=== PATIENT | male | born 1955 | race Hispanic/Latino ===

== ENCOUNTER 2020-01-17 07:09 | Day surgery (SDC) | payer OTHER ==
[2020-01-17 07:25] VITALS: BP 125/72
[2020-01-17 08:30] VITALS: BP 135/81
[2020-01-17 09:30] VITALS: BP 116/70
[2020-01-17 10:30] VITALS: BP 117/78
[2020-01-17 11:30] VITALS: BP 103/53
[2020-01-17] MEDS ORDERED: IOHEXOL 350 MG/ML 100ML INFUS..BTL IV ONE (11:57)
[2020-01-17 12:30] VITALS: BP 149/87
== END 2020-01-17 13:15 | disposition home or self-care (01) ==
LOC: RAH 07:09 → DAH 07:09 → RAH 13:15
PROVIDERS: ATTEND Internal Medicine Cardiovascular Disease
DX: I71.4 Abdominal aortic aneurysm, without rupture (principal)
CPT/HCPCS: 74174; A4215; A4216; A4221; A4222; A4223 ×3; A4606; A4663; Q9967; 96360; 96361

== ENCOUNTER 2020-02-09 09:00 | Inpatient (IN) | payer OTHER ==
[~2020-02-09] VITALS: Ht 175.3 cm; Wt 94.8 kg
[2020-02-09 10:12] LABS: BASOPHILS % (AUTO) 0.7 % (0.0-5.0); EOSINOPHILS % (AUTO) 2.3 % (0.0-8.0); HEMATOCRIT 45.6 % (42-54); LYMPHOCYTES % (AUTO) 18.7 % (21.0-51.0); MEAN CORPUSCULAR HEMOGLOBIN 31.6 pg (27.0-33.0); MEAN CORPUSCULAR HGB CONC 33.6 g/dL (32.0-36.0); MEAN CORPUSCULAR VOLUME 94.2 fL (79-99); NEUTROPHILS % (AUTO) 71.7 % (40.0-77.0); PLATELET COUNT (AUTO) 210 K/uL (130-400); RED BLOOD CELL COUNT(AUTO) 4.84 MIL/uL (4.50-6.20); RED CELL DISTRIBUTION WIDTH 13.9 % (11.0-15.5); WHITE BLOOD COUNT (AUTO) 10.6 K/uL (4.8-10.8)
[2020-02-09 10:26] LABS: CREATININE 1.9 mg/dL (0.5-1.5)
[2020-02-09 10:31] LABS: INR 1.02 (0.85-1.15); PARTIAL THROMBOPLASTIN TIME 29.9 SEC (26.3-35.5)
[2020-02-09 10:44] LABS: APPEARANCE,URINE Clear (CLEAR); BILIRUBIN,URINE Negative (NEGATIVE); COLOR,URINE Yellow (YELLOW); GLUCOSE, URINE (UA) Negative (NEGATIVE); KETONES,URINE Negative (NEGATIVE); LEUKOCYTE ESTERASE ,URINE Negative (NEGATIVE); NITRATE,URINE Negative (NEGATIVE); OCCULT BLOOD,URINE Negative (NEGATIVE); PROTEIN,URINE POS 1+ mg/dL (NEGATIVE); UROBILINOGEN,URINE 0.2 mg/dL (0.2-1.0)
[2020-02-09 11:31] LABS: RBC,URINE 0-1 /HPF (0-1); WBC,URINE 0-1 /HPF (0-1)
[2020-02-09 11:32] LABS: BACTERIA,URINE Rare /HPF (None Seen); SQUAMOUS EPITHELIAL CELL,UR 0-2 /HPF (0-2)
[2020-02-10 09:13] VITALS: BP 119/78
--- NOTE | 2020-02-13 09:31 | NUR ---
Abnormal creatinine level reported to Dr. López. New orders to hydrate pt on arrival NS @ 150ml/hr.
[2020-02-13] MEDS ORDERED: AMLO5TAB9 PO (10:51)
[2020-02-13] MEDS ORDERED: LOSA1TAB37 PO (10:51)
[2020-02-13] MEDS ORDERED: ATOR40TA71 PO (10:51)
[2020-02-14] VITALS (17 sets, daily range): BP systolic 99–155; BP diastolic 52–80
--- NOTE | 2020-02-14 06:10 | NUR ---
POTENTIAL FOR INFECTION: SHAVED FROM CHEST TO MID THIGHS PER [employer]. Addendum: 02/14/20 at 0655 by JAROD QURESHI RN RN SHAVING DONE TO ABOVE KNEE AND BILATERAL GROIN AREA, FOLLOWED BY WIPING WITH DEWEY: 2% CHLORHEXIDINE GLUCONATE CLOTH PATIENTS PRE-OP SKIN PREP PER [employer].
[2020-02-14] MEDS ORDERED: IODIXANOL 320 MG/ML 100 ML VIAL ONE (06:48)
[2020-02-14] MEDS ORDERED: HEPARIN SODIUM 1000UNIT/ML 10ML VIAL ONE ×2 (06:48→08:57)
[2020-02-14] MEDS: SODIUM CHLORIDE 0.9% 1000ML 1,000 ML IV SCH ×3 (06:49→15:53)
[2020-02-14] MEDS ORDERED: SUCCINYLCHOLINE CHLORIDE 20 MG/ML 10 ML VIAL ONE (07:16)
[2020-02-14] MEDS ORDERED: DEXAMETHASONE SOD PHOSPHATE 10MG/ML 1ML VIAL ONE (07:16)
[2020-02-14] MEDS ORDERED: LIDOCAINE PF 2% 5ML ABBOJECT ONE (07:16)
[2020-02-14] MEDS ORDERED: ONDANSETRON HCL 4 MG/2 ML VIAL ONE (07:16)
[2020-02-14] MEDS ORDERED: PROPOFOL 10 MG/ML 20ML VIAL IV ONE (07:17)
[2020-02-14] MEDS ORDERED: ROCURONIUM 10MG/1ML SYR 10 MG/ML ML ONE (07:17)
[2020-02-14] MEDS ORDERED: FENTANYL CITRATE PF 50 MCG/1 ML 2ML VIAL ONE ×2 (07:17→10:52)
[2020-02-14] MEDS ORDERED: NEOSTIGMINE 5MG/5ML SYR IV ONE (07:17)
[2020-02-14] MEDS ORDERED: GLYCOPYRROLATE 1 MG/5 ML SYRINGE ONE (07:17)
[2020-02-14] MEDS ORDERED: MIDAZOLAM HCL 1 MG/ML 2ML VIAL ONE (07:17)
[2020-02-14] MEDS ORDERED: FENTANYL CITRATE PF 50 MCG/1 ML 5ML AMP IV ONE (07:18)
[2020-02-14] MEDS ORDERED: CEFAZOLIN SODIUM 1 GM VIAL ONE (07:31)
[2020-02-14] MEDS ORDERED: PHENYLEPHRINE HCL 10 MG/ML 1ML VIAL IV ONE ×3 (07:39→10:29)
[2020-02-14] MEDS ORDERED: EPINEPHRINE 1 MG/ML AMPULE ONE (07:39)
[2020-02-14] MEDS ORDERED: ROCURONIUM BROMIDE 10MG/1ML 5ML VL ONE (08:26)
[2020-02-14] MEDS ORDERED: NITROGLYCERIN 50 MG/D5% WATER 250 BOT IV PRN (11:00)
[2020-02-14] MEDS ORDERED: TEMAZEPAM 30 MG CAP PO PRN (11:00)
[2020-02-14] MEDS ORDERED: ACETAMINOPHEN 325 MG TAB PO PRN (11:00)
[2020-02-14] MEDS ORDERED: SODIUM CHLORIDE 0.9% 1000ML 1,000 ML IV SCH (11:00)
[2020-02-14] MEDS ORDERED: NOREPINEPHRINE 4MG/NS 250ML 250 ML IV PRN (11:00)
[2020-02-14] MEDS ORDERED: ONDANSETRON HCL 4 MG/2 ML VIAL IV PRN (11:00)
[2020-02-14] MEDS ORDERED: MORPHINE SULFATE 5 MG/ML VIAL ONE (11:27)
--- NOTE | 2020-02-14 11:35 | NUR ---
PT ARRIVES FROM [facility] POST ENDOLUMINAL GRAFT AAA REPAIR. BILATERAL FEMORAL PERCUTANEOUS SITES TO GROINS-BOTH ASYMPTOMATIC. EXTUBATED PER VALENTINA GONZALEZ. ON NRB FOR NOW. PT RESPONSIVE AND FOLLOWS COMMANDS
--- NOTE | 2020-02-14 12:30 | NUR ---
PT COMFORTABLE AND RESTING. NO BLEEDING OR HEMATOMAS TO BILATERAL GROINS. PEDAL PULSES PRESENT. I HAVE STARTED LOW DOSE LEVOPHED DUE TO HYPOTENSIVE EPISODE OF 83/50. CURRENTLY NOW 106/53. HR 64. PT ON 4L/NC. DR AGUERO NOTIFIED OF ADMISSION AND ROOM NUMBER
--- NOTE | 2020-02-14 16:26 | NUR ---
PT IS IN NO DISTRESS-AWAKE AND ALERT. CONVERSIVE. TAKING PO FLUIDS WELL. DENIES ANY PAIN
[2020-02-14] MEDS ORDERED: CEFAZOLIN SODIUM 1 GM VIAL IVP SCH (20:00)
[2020-02-14] MEDS ORDERED: AMLODIPINE BESYLATE 5 MG TAB PO SCH (21:00)
[2020-02-15] VITALS (10 sets, daily range): BP systolic 109–153; BP diastolic 55–82
[2020-02-15] MEDS: SODIUM CHLORIDE 0.9% 1000ML 1,000 ML IV SCH ×2 (02:29→08:24)
[2020-02-15 03:17] LABS: HEMATOCRIT 37.8 % (42-54); MEAN CORPUSCULAR HEMOGLOBIN 31.4 pg (27.0-33.0); MEAN CORPUSCULAR HGB CONC 33.9 g/dL (32.0-36.0); MEAN CORPUSCULAR VOLUME 92.9 fL (79-99); RED BLOOD CELL COUNT(AUTO) 4.07 MIL/uL (4.50-6.20); RED CELL DISTRIBUTION WIDTH 13.7 % (11.0-15.5); WHITE BLOOD COUNT (AUTO) 14.1 K/uL (4.8-10.8)
[2020-02-15 03:27] LABS: POTASSIUM 4.7 mmol/L (3.5-5.1)
--- NOTE | 2020-02-15 05:45 | NUR ---
TEJADA TEJADA CATHETER DISCONTINUED AT THIS TIME BALLOON AND CATHETER INTACT. PT TOLERATED WELL NO ADVERSE REACTIONS. PT ASKED TO CALL FOR ASSISTANCE IF NEEDED TO VOID.
[2020-02-15] MEDS ORDERED: LOSARTAN/HYDROCHLOROTHIAZIDE 50-12.5MG TABLET PO SCH (09:00)
[2020-02-15] MEDS ORDERED: ATORVASTATIN CALCIUM 20 MG TABLET PO SCH (09:00)
--- NOTE | 2020-02-15 10:00 | NUR ---
DISCHARGE DISCHARGE ORDER GIVEN BY Jewels JERONIMO. DISCHARGE PAPERWORK GIVEN TO PT. STATES HE UNDERSTANDS EDUCATION AND FOLLOW UP INSTRUCTIONS. VITAL SIGNS PRIOR TO DEPARTURE WERE BP:147/64 SPO2 100%.
--- NOTE | 2020-02-15 10:45 | NUR ---
DC PLAN PATIENT HAD BEEN DOWN FOR PROCEDURE YESTERDAY. PATIENT DISCHARGED. NO NEEDS VERBALIZED BY NURSING STAFF. Addendum: 02/15/20 at 1046 by ANJU RANDALL RN CM Amended: Links added.
== END 2020-02-15 11:05 | disposition home or self-care (01) | DRG 268 ==
LOC: EDSTATUS 09:00 → DAHIP 02-14 05:50
PROVIDERS: ADMIT Internal Medicine Critical Care Medicine; ATTEND Internal Medicine Critical Care Medicine
PROC: 04V03EZ Restriction of Abdominal Aorta with Branched or Fenestrated Intraluminal Device, One or Two Arteries, Percutaneous Approach (ICD-10-PCS; principal; 2020-02-14)
PROC: B4101ZZ Fluoroscopy of Abdominal Aorta using Low Osmolar Contrast (ICD-10-PCS; 2020-02-14)
DX: I71.4 Abdominal aortic aneurysm, without rupture (principal); I21.19 ST elevation (STEMI) myocardial infarction involving other coronary artery of inferior wall; N18.4 Chronic kidney disease, stage 4 (severe); E78.5 Hyperlipidemia, unspecified; I25.10 Atherosclerotic heart disease of native coronary artery without angina pectoris; F17.200 Nicotine dependence, unspecified, uncomplicated; I12.9 Hypertensive chronic kidney disease with stage 1 through stage 4 chronic kidney disease, or unspecified chronic kidney disease; I45.9 Conduction disorder, unspecified; I72.3 Aneurysm of iliac artery; I70.1 Atherosclerosis of renal artery; I25.2 Old myocardial infarction; Z03.818 Encounter for observation for suspected exposure to other biological agents ruled out
CPT/HCPCS: 34705; 34712; 34713; 36415; 71045; 80048; 81001; 85025; 85027; 85347; 85610; 85730; 86850; 86900; 86901; 86922; 93005; A4344; C1725; C1760; C1769; C1887; C1894; G0378; J0171; J0330; J0690; J1100; J1644; J2001; J2250; J2270; J2370; J2405; J2704; J2710; J3010; J3490; J7030; Q9967; U0003